=== PATIENT | male | born 1935 | race Caucasian/White ===

== ENCOUNTER 2020-02-06 22:09 | Inpatient (IN) | payer MEDICARE ==
[~2020-02-06] VITALS: Ht 177.8 cm; Wt 68.0 kg
[2020-02-06] MEDS ORDERED: metoprolol tartrate 1mg/ml inj IV ONE (22:30)
[2020-02-06] MEDS ORDERED: nitroGLYCERIN 0.4mg/hour patch TD ONE (22:30)
[2020-02-06] MEDS ORDERED: DILT240C51 PO (22:48)
[2020-02-06] MEDS ORDERED: METO-395 PO (22:49)
[2020-02-06] MEDS ORDERED: RIVA20TA PO (22:49)
[2020-02-06] MEDS ORDERED: CLOP75TA35 PO (22:50)
[2020-02-06] MEDS ORDERED: ISOS60TA4 PO (22:50)
[2020-02-06] MEDS ORDERED: LEVO125T8 PO (22:51)
[2020-02-06 22:52] LABS: BASOPHILS % (AUTO) 0.4 % (0-1); EOSINOPHILS # (AUTO) 0.2 X10'3 (0-0.9); EOSINOPHILS % (AUTO) 2.8 % (0-6); HEMATOCRIT 39.5 % (42.0-52.0); HEMOGLOBIN 13.1 g/dl (14.0-17.9); LYMPHOCYTES # (AUTO) 1.3 X10'3 (1.1-4.8); LYMPHOCYTES % (AUTO) 15.6 % (21-51); MEAN CORPUSCULAR HGB CONC 33.1 g/dL (33.0-36.5); MEAN CORPUSCULAR VOLUME 90.6 FL (78-98); MEAN PLATELET VOLUME 7.8 FL (7.4-10.4); MONOCYTES # (AUTO) 0.5 X10'3 (0-0.9); MONOCYTES % (AUTO) 6.7 % (2-12); NEUTROPHILS # (AUTO) 6.1 X10'3 (1.8-7.7); NEUTROPHILS % (AUTO) 74.5 % (42-75); PLATELET COUNT 195 X10'3 (140-440); RED BLOOD COUNT 4.35 X10'6 (4.70-6.10); RED CELL DISTRIBUTION WIDTH 15.3 % (11.5-14.5); WHITE BLOOD COUNT 8.1 X10'3 (4.5-11.0)
[2020-02-06] MEDS ORDERED: PANT20TA3 PO (22:52)
[2020-02-06 22:58] LABS: PARTIAL THROMBOPLASTIN TIME 33 SECONDS (22-32)
[2020-02-06 23:09] LABS: MAGNESIUM 2.2 MG/DL (1.5-2.4)
[2020-02-06] MEDS ORDERED: potassium CL 10mEq/100ml bag 100 ML IV PRN ×2 (23:20)
[2020-02-06] MEDS ORDERED: potassium Cl 20 mEq SR tablet PO PRN (23:20)
[2020-02-06] MEDS ORDERED: acetaminophen 325mg tablet PO PRN ×2 (23:20)
[2020-02-06] MEDS ORDERED: docusate sod 100mg capsule PO PRN (23:20)
[2020-02-06] MEDS ORDERED: HYDROcodone/acetaminophen 10/325mg tab PO PRN (23:20)
[2020-02-06] MEDS ORDERED: LIDOcaine 2% 10ml TOPICAL JELLY (Urojet) MM ONE (23:20)
[2020-02-06] MEDS ORDERED: ondansetron/PF 4mg/2ml inj IV PRN (23:20)
[2020-02-06] MEDS ORDERED: magnesium Cl slow-release 64mg tablet PO PRN (23:20)
[2020-02-06] MEDS ORDERED: mag hydrox/Alum hydrox/simeth 30ml oral suspension PO PRN (23:20)
[2020-02-06] MEDS ORDERED: magnesium 4gm in 100ml NS 100 ML IV PRN (23:20)
[2020-02-06] MEDS ORDERED: ipratropium/albuterol 3ml nebule NEB PRN (23:20)
[2020-02-06] MEDS ORDERED: magnesium 2GM in 50ml NS 50 ML IV PRN (23:20)
[2020-02-06 23:57] LABS: CLARITY,URINE SLIGHTLY CLOUDY (Clear); COLOR,URINE YELLOW (Yellow); GLUCOSE, URINE NEGATIVE (Neg); KETONES,URINE NEGATIVE (Neg); LEUKOCYTE ESTERASE ,URINE NEGATIVE (Neg); NITRITES, URINE NEGATIVE (Neg); OCCULT BLOOD,URINE MODERATE (Neg); PROTEIN,URINE 30 mg/dl (Neg)
[2020-02-06 23:58] LABS: UA COLLECTION TYPE URINAL
[2020-02-07] VITALS (15 sets, daily range): BP systolic 132–179; BP diastolic 76–114
[2020-02-07 00:10] LABS: ALANINE AMINOTRANSFERASE 17 U/L (12-78); ALBUMIN/GLOBULIN RATIO 0.9 (1.1-1.5); ALKALINE PHOSPHATASE 77 IU/L (46-116); ANION GAP 9 (8-16); ASPARTATE AMINO TRANSFERASE 27 U/L (10-37); BILIRUBIN,TOTAL 1.1 MG/DL (0.1-1.0); BLOOD UREA NITROGEN 26 MG/DL (7-18); BUN/CREATININE RATIO 20.3 (5.4-32.0); CALCIUM 8.5 MG/DL (8.5-10.1); CHLORIDE 107 MMOL/L (99-107); CREATININE 1.28 MG/DL (0.60-1.10); GLUCOSE 111 MG/DL (70-104); POTASSIUM 3.5 MMOL/L (3.5-5.1); SODIUM 142 MMOL/L (135-145); TOTAL CARBON DIOXIDE 26.5 MMOL/L (24-32); TOTAL PROTEIN 6.5 G/DL (6.4-8.2); eGFR 54 ML/MIN
--- NOTE | 2020-02-07 00:35 | NUR ---
I have received report from Inder, RN (ED) and had the opportunity to ask questions about the new pt. who will be admitted to 3012B.
[2020-02-07 00:50] LABS: RBC,URINE 0-2 /HPF (0-2); WBC,URINE 0-4 /HPF (0-4)
[2020-02-07 00:51] LABS: BACTERIA,URINE NONE SEEN /HPF (Neg); SQUAMOUS EPITHELIAL CELL,UR FEW /LPF (FEW)
--- NOTE | 2020-02-07 01:00 | NUR ---
Pt arrived to the unit via [place] and accompanied by an RN from ED. Pt belongings are with the pt. He walked from [facility] into the bedroom with steady gait. Activity was tolerated well, and he denied any SOB or chest pain. Tele monitor in place. MRSA swab and 2 - RN skin assessment were done.
[2020-02-07 02:21] LABS: ALANINE AMINOTRANSFERASE 18 U/L (12-78); ALBUMIN 3.4 G/DL (3.4-5.0); ALBUMIN/GLOBULIN RATIO 0.9 (1.1-1.5); ALKALINE PHOSPHATASE 84 IU/L (46-116); ANION GAP 8 (8-16); ASPARTATE AMINO TRANSFERASE 31 U/L (10-37); BILIRUBIN,TOTAL 1.3 MG/DL (0.1-1.0); BLOOD UREA NITROGEN 25 MG/DL (7-18); BUN/CREATININE RATIO 18.9 (5.4-32.0); CALCIUM 8.7 MG/DL (8.5-10.1); CHLORIDE 106 MMOL/L (99-107); CREATININE 1.32 MG/DL (0.60-1.10); GLUCOSE 112 MG/DL (70-104); POTASSIUM 3.4 MMOL/L (3.5-5.1); SODIUM 143 MMOL/L (135-145); TOTAL CARBON DIOXIDE 29.2 MMOL/L (24-32); TOTAL PROTEIN 7.3 G/DL (6.4-8.2); eGFR 52 ML/MIN
[2020-02-07 02:23] LABS: BASOPHILS % (AUTO) 0.5 % (0-1); CHOL/HDL RATIO 2.9 (0.00-4.99); CHOLESTEROL 126 MG/DL (0-200); EOSINOPHILS # (AUTO) 0.2 X10'3 (0-0.9); EOSINOPHILS % (AUTO) 2.8 % (0-6); HDL CHOLESTEROL 43 MG/DL (35-60); HEMATOCRIT 41.1 % (42.0-52.0); HEMOGLOBIN 13.4 g/dl (14.0-17.9); LDL CHOLESTEROL 79 MG/DL (50-100); LYMPHOCYTES # (AUTO) 1.3 X10'3 (1.1-4.8); LYMPHOCYTES % (AUTO) 16.9 % (21-51); MAGNESIUM 2.1 MG/DL (1.5-2.4); MEAN CORPUSCULAR HEMOGLOBIN 29.7 PG (27.0-31.0); MEAN CORPUSCULAR HGB CONC 32.6 g/dL (33.0-36.5); MEAN PLATELET VOLUME 7.7 FL (7.4-10.4); MONOCYTES # (AUTO) 0.6 X10'3 (0-0.9); MONOCYTES % (AUTO) 7.6 % (2-12); NEUTROPHILS # (AUTO) 5.7 X10'3 (1.8-7.7); NEUTROPHILS % (AUTO) 72.2 % (42-75); PLATELET COUNT 212 X10'3 (140-440); RED BLOOD COUNT 4.52 X10'6 (4.70-6.10); RED CELL DISTRIBUTION WIDTH 15.5 % (11.5-14.5); TRIGLYCERIDES 79 MG/DL (20-135); WHITE BLOOD COUNT 7.9 X10'3 (4.5-11.0)
[2020-02-07] MEDS ORDERED: hydrALAZINE 20mg/ml inj. IV ONE (03:10)
[2020-02-07] MEDS ORDERED: nitroGLYCERIN 0.4mg SUBLingual tab SL PRN (06:00)
[2020-02-07] MEDS ORDERED: regadenoson 0.4mg/5ml syringe IV ONE (06:00)
[2020-02-07] MEDS ORDERED: aminophylline 250mg/10ml inj. IV PRN (06:00)
[2020-02-07] MEDS ORDERED: metoprolol tartrate 1mg/ml inj IV PRN (06:00)
[2020-02-07] MEDS: potassium Cl 20 mEq SR tablet PO PRN ×3 (06:03→16:30)
--- NOTE | 2020-02-07 06:17 | NUR ---
Patient in room PCU 3012. I have received report from Martine CORTES and had the opportunity to ask questions and assume patient care.
--- NOTE | 2020-02-07 06:24 | NUR ---
Problems reprioritized. Patient report given, questions answered & plan of care reviewed with SOPHIA Butt.
--- NOTE | 2020-02-07 06:44 | NUR ---
Patient c/o not being able to urinate, sent Dr Vera a page PAGER ID: [phone] MESSAGE: Filomena CORTES [phone] [id number] pt c/o not being able to pee, states he has BPH, bladder scan showed 590ml, can i have an order for straight cath and then possibly get flomax on board? thanks Addendum: 02/07/20 at 0646 by Corina Doe RN Spoke with Dr Vera via telephone, received orders for straight cath with a urojet as well as for daily flomax, will continue to monitor the patient closely. Addendum: 02/07/20 at 0756 by Corina Doe RN Patient now resting comfortable, not c/o any pain, pain was a 10 when he could not urinate this morning, BP decreasing, AM medications given, Flomax given, metoprolol on hold for stress test this AM, states just wants to get some sleep as he has "been awake since 5AM yesterday", will continue to monitor closely.
[2020-02-07] MEDS ORDERED: LIDOcaine 2% 10ml TOPICAL JELLY (Urojet) MM ONE (06:50)
[2020-02-07] MEDS: clopidogrel 75mg tablet PO SCH (07:12)
[2020-02-07] MEDS: diltiazem CD 120mg capsule (once-daily) PO SCH (07:12)
[2020-02-07] MEDS: tamsulosin 0.4mg capsule PO SCH (07:12)
[2020-02-07] MEDS: isosorbide mononitrate 30mg tab.SR.24H PO SCH (07:12)
[2020-02-07] MEDS: pantoprazole 40mg Tablet.DR PO SCH (07:12)
[2020-02-07] MEDS: rivaroxaban 20mg tablet PO SCH (07:12)
[2020-02-07] MEDS: K and/or MAG REPLACEMENT MC SCH ×2 (07:18→20:29)
[2020-02-07] MEDS ORDERED: levoTHYROXINE 125mcg tablet PO SCH (08:00)
--- NOTE | 2020-02-07 09:17 | NUR ---
Sent a page to Dr Rodolfo vale PAGER ID: [phone] MESSAGE: Filomena CORTES [phone] [id number] pt c/o retention, pain and urgency, straight cathed this morning and got 800ml out, bladder scan shows 350ml now, do you want me to straight cath him again? or place george for retention? thanks Addendum: 02/07/20 at 926 by Corina Doe RN Dr Reynolds at bedside, received orders for George catheter placement, will continue to monitor the patient closely. Addendum: 02/07/20 at 956 by Corina Doe RN MD Reynolds aware of hematuria, will continue to monitor closely.
[2020-02-07] MEDS ORDERED: LIDOcaine 2% 10ml TOPICAL JELLY (Urojet) TP ONE (09:30)
--- NOTE | 2020-02-07 10:30 | NUR ---
Patient left the unit to go down to nuclear medicine for stress test.
[2020-02-07] MEDS: metoprolol succinate 25mg (24-HOUR) SR. Tablet PO SCH (12:12)
--- NOTE | 2020-02-07 12:18 | NUR ---
Sent a page to Dr Rodolfo vale PAGER ID: [phone] MESSAGE: Filomena CORTES [phone], anjana Cooleyi scan results are back, can I go ahead and order a diet for this patient? thanks Addendum: 02/07/20 at 1220 by Corina Doe RN Spoke w Dr Reynolds via telephone, heart healthy diet ordered
--- NOTE | 2020-02-07 12:34 | NUR ---
Malnutrition Consult: Pt has normal strength, no edema, skin intact, appears well-developed/well-nourished per MD note. No scaled wt hx pending scaled wt this admit. Initially NPO for stress test advanced to heart healthy diet pending PO this admit. Pt does not meet minimum malnutrition criteria at this time. Will continue to monitor. Addendum: 02/07/20 at [address] Amended: Links added.
[2020-02-07] MEDS ORDERED: furosemide 40mg/4ml inj IV ONE (13:05)
--- NOTE | 2020-02-07 13:35 | NUR ---
Spoke to patients , Sade, at [phone] and updated her on the patients plan of care. Sade is aware that the patient was having urinary retention this morning and now has a North catheter in place. Sade was asking if discharge was going to happen today, educated that discharge wont happen today due to the retention and the need to complete all ordered tests. Will continue to monitor the patient closely and call Sade with any updates.
--- NOTE | 2020-02-07 13:50 | NUR ---
Spoke to Dr Weinberg, and stated that he is cleared to be discharged from a cardiology standpoint. Will continue to monitor the patient closely.
--- NOTE | 2020-02-07 18:04 | NUR ---
Problems reprioritized. Patient report given, questions answered & plan of care reviewed with Rylie CORTES.
--- NOTE | 2020-02-07 18:13 | NUR ---
Patient in room PCU 3012. I have received report from Filomena CORTES and had the opportunity to ask questions and assume patient care.
[2020-02-08 03:00] VITALS: BP 159/89
[2020-02-08 05:19] LABS: BASOPHILS % (AUTO) 0.2 % (0-1); EOSINOPHILS # (AUTO) 0.1 X10'3 (0-0.9); EOSINOPHILS % (AUTO) 1.1 % (0-6); HEMATOCRIT 35.3 % (42.0-52.0); HEMOGLOBIN 11.6 g/dl (14.0-17.9); LYMPHOCYTES # (AUTO) 0.7 X10'3 (1.1-4.8); LYMPHOCYTES % (AUTO) 7.7 % (21-51); MEAN CORPUSCULAR HGB CONC 32.8 g/dL (33.0-36.5); MEAN CORPUSCULAR VOLUME 91.3 FL (78-98); MEAN PLATELET VOLUME 7.8 FL (7.4-10.4); MONOCYTES # (AUTO) 0.6 X10'3 (0-0.9); MONOCYTES % (AUTO) 6.8 % (2-12); NEUTROPHILS # (AUTO) 7.5 X10'3 (1.8-7.7); NEUTROPHILS % (AUTO) 84.2 % (42-75); PLATELET COUNT 197 X10'3 (140-440); RED BLOOD COUNT 3.86 X10'6 (4.70-6.10); RED CELL DISTRIBUTION WIDTH 15.4 % (11.5-14.5); WHITE BLOOD COUNT 8.9 X10'3 (4.5-11.0)
[2020-02-08 05:36] LABS: ALANINE AMINOTRANSFERASE 14 U/L (12-78); ALBUMIN 3.2 G/DL (3.4-5.0); ALBUMIN/GLOBULIN RATIO 0.9 (1.1-1.5); ALKALINE PHOSPHATASE 64 IU/L (46-116); ANION GAP 10 (8-16); ASPARTATE AMINO TRANSFERASE 32 U/L (10-37); BILIRUBIN,TOTAL 1.8 MG/DL (0.1-1.0); BLOOD UREA NITROGEN 21 MG/DL (7-18); BUN/CREATININE RATIO 17.2 (5.4-32.0); CALCIUM 8.5 MG/DL (8.5-10.1); CHLORIDE 108 MMOL/L (99-107); CREATININE 1.22 MG/DL (0.60-1.10); GLUCOSE 110 MG/DL (70-104); MAGNESIUM 1.9 MG/DL (1.5-2.4); POTASSIUM 3.3 MMOL/L (3.5-5.1); SODIUM 145 MMOL/L (135-145); TOTAL CARBON DIOXIDE 27.3 MMOL/L (24-32); TOTAL PROTEIN 6.6 G/DL (6.4-8.2); eGFR 57 ML/MIN
[2020-02-08 06:00] VITALS: BP 178/103
--- NOTE | 2020-02-08 06:18 | NUR ---
Patient in room PCU 3012. I have received report from Rylie CORTES and had the opportunity to ask questions and assume patient care.
--- NOTE | 2020-02-08 06:29 | NUR ---
Problems reprioritized. Patient report given, questions answered & plan of care reviewed with Filomena CORTES.
[2020-02-08] MEDS: diltiazem CD 120mg capsule (once-daily) PO SCH (07:02)
[2020-02-08] MEDS: isosorbide mononitrate 30mg tab.SR.24H PO SCH (07:02)
[2020-02-08] MEDS: levoTHYROXINE 125mcg tablet PO SCH (07:03)
[2020-02-08] MEDS: furosemide 40mg/4ml inj IV SCH (07:03)
[2020-02-08] MEDS: pantoprazole 40mg Tablet.DR PO SCH (07:03)
[2020-02-08] MEDS: metoprolol succinate 25mg (24-HOUR) SR. Tablet PO SCH (07:03)
[2020-02-08] MEDS: rivaroxaban 20mg tablet PO SCH (07:03)
[2020-02-08] MEDS: clopidogrel 75mg tablet PO SCH (07:03)
[2020-02-08] MEDS: tamsulosin 0.4mg capsule PO SCH (07:03)
[2020-02-08] MEDS: potassium Cl 20 mEq SR tablet PO PRN ×3 (07:03→17:01)
[2020-02-08] MEDS: K and/or MAG REPLACEMENT MC SCH ×2 (07:12→20:00)
[2020-02-08 09:10] VITALS: BP 136/84
--- NOTE | 2020-02-08 10:02 | NUR ---
Spoke with Dr Reynolds, received orders to irrigate North catheter and hold all blood thinners, will continue to monitor closely.
--- NOTE | 2020-02-08 10:33 | NUR ---
Spoke with patients via telephone and updated her on the patients current plan of care.
[2020-02-08 11:00] VITALS: BP 127/90
--- NOTE | 2020-02-08 11:12 | NUR ---
Sent a page to Dr Rodolfo vale PAGER ID: [phone] MESSAGE: Filomena CORTES [phone] [id number], irrigated bladder until clear but urine is bright hirsch again, still leaking from around the urethra, do you want me to replace this North? please advise, thanks
--- NOTE | 2020-02-08 11:52 | NUR ---
Sent another page to Dr Reynolds PAGER ID: [phone] MESSAGE: Filomena CORTES [phone], [address] [place], george catheter irrigates but the water is now leaking from around the catheter, do you want me to insert a coude or new catheter? please advise, thanks
--- NOTE | 2020-02-08 13:41 | NUR ---
Patient passing urine from around North catheter, irrigating North per MD order but irrigation flush leaking out around catheter, patient passed a 2.5 inch blood clot around the catheter and onto the bed, discontinued North catheter placed yesterday and placed new Coude 16 khmer catheter, will continue to monitor the patient closely.
[2020-02-08] MEDS ORDERED: iohexol 300mg/ml 100ml inj. ONE (14:55)
[2020-02-08 15:00] VITALS: BP 117/76
[2020-02-08] MEDS: HYDROcodone/acetaminophen 5mg/325mg tablet PO PRN (16:51)
--- NOTE | 2020-02-08 16:57 | NUR ---
RN at bedside with MD Bright MD replaced North catheter and irrigated bladder, received new orders for CBI, will continue to monitor the patient closely.
[2020-02-08 18:00] VITALS: BP 158/95
--- NOTE | 2020-02-08 18:25 | NUR ---
Problems reprioritized. Patient report given, questions answered & plan of care reviewed with Rylie CORTES.
--- NOTE | 2020-02-08 18:29 | NUR ---
Patient in room PCU 3012. I have received report from Filomena CORTES and had the opportunity to ask questions and assume patient care.
[2020-02-09 02:58] VITALS: BP 148/78
[2020-02-09 06:06] LABS: BASOPHILS % (AUTO) 0.3 % (0-1); EOSINOPHILS # (AUTO) 0.2 X10'3 (0-0.9); EOSINOPHILS % (AUTO) 2.2 % (0-6); HEMOGLOBIN 11.6 g/dl (14.0-17.9); LYMPHOCYTES % (AUTO) 10.8 % (21-51); MEAN CORPUSCULAR HEMOGLOBIN 30.2 PG (27.0-31.0); MEAN CORPUSCULAR HGB CONC 33.1 g/dL (33.0-36.5); MEAN CORPUSCULAR VOLUME 91.1 FL (78-98); MEAN PLATELET VOLUME 7.8 FL (7.4-10.4); MONOCYTES # (AUTO) 0.7 X10'3 (0-0.9); MONOCYTES % (AUTO) 7.4 % (2-12); NEUTROPHILS # (AUTO) 7.6 X10'3 (1.8-7.7); NEUTROPHILS % (AUTO) 79.3 % (42-75); PLATELET COUNT 194 X10'3 (140-440); RED BLOOD COUNT 3.85 X10'6 (4.70-6.10); RED CELL DISTRIBUTION WIDTH 15.3 % (11.5-14.5); WHITE BLOOD COUNT 9.6 X10'3 (4.5-11.0)
[2020-02-09 06:11] LABS: ALANINE AMINOTRANSFERASE 13 U/L (12-78); ALBUMIN 3.3 G/DL (3.4-5.0); ALKALINE PHOSPHATASE 68 IU/L (46-116); ANION GAP 10 (8-16); ASPARTATE AMINO TRANSFERASE 27 U/L (10-37); BILIRUBIN,TOTAL 1.7 MG/DL (0.1-1.0); BLOOD UREA NITROGEN 17 MG/DL (7-18); BUN/CREATININE RATIO 14.8 (5.4-32.0); CALCIUM 8.7 MG/DL (8.5-10.1); CHLORIDE 106 MMOL/L (99-107); CREATININE 1.15 MG/DL (0.60-1.10); GLUCOSE 113 MG/DL (70-104); MAGNESIUM 1.9 MG/DL (1.5-2.4); POTASSIUM 3.3 MMOL/L (3.5-5.1); SODIUM 142 MMOL/L (135-145); TOTAL PROTEIN 6.7 G/DL (6.4-8.2); eGFR 61 ML/MIN
--- NOTE | 2020-02-09 06:28 | NUR ---
Patient in room PCU 3012. I have received report from SOPHIA Youngblood and had the opportunity to ask questions and assume patient care. Pt resting comfortably during bedside report.
--- NOTE | 2020-02-09 06:35 | NUR ---
Problems reprioritized. Patient report given, questions answered & plan of care reviewed with Maria De Jesus CORTES.
[2020-02-09 07:00] VITALS: BP 164/110
[2020-02-09] MEDS: pantoprazole 40mg Tablet.DR PO SCH (07:38)
[2020-02-09] MEDS: furosemide 40mg/4ml inj IV SCH (07:38)
[2020-02-09] MEDS: metoprolol succinate 25mg (24-HOUR) SR. Tablet PO SCH (07:38)
[2020-02-09] MEDS: isosorbide mononitrate 30mg tab.SR.24H PO SCH (07:38)
[2020-02-09] MEDS: diltiazem CD 120mg capsule (once-daily) PO SCH (07:38)
[2020-02-09] MEDS: tamsulosin 0.4mg capsule PO SCH (07:38)
[2020-02-09] MEDS: levoTHYROXINE 125mcg tablet PO SCH (07:38)
[2020-02-09] MEDS: K and/or MAG REPLACEMENT MC SCH ×2 (08:00→19:28)
[2020-02-09] MEDS: clopidogrel 75mg tablet PO SCH (08:00)
[2020-02-09 11:00] VITALS: BP 125/82
[2020-02-09] MEDS: potassium Cl 20 mEq SR tablet PO PRN ×2 (12:35→17:44)
[2020-02-09 15:00] VITALS: BP 119/85
[2020-02-09 18:00] VITALS: BP 109/70
--- NOTE | 2020-02-09 18:00 | NUR ---
Patient in room PCU 3012. I have received report from Maria De Jesus CORTES and had the opportunity to ask questions and assume patient care.
--- NOTE | 2020-02-09 18:23 | NUR ---
Problems reprioritized. Patient report given, questions answered & plan of care reviewed with SOPHIA Dejesus. All pt needs met at this time.
[2020-02-09] MEDS: opium/belladonna alkaloids No. 15A 30mg rectal suppository RC PRN (19:10)
[2020-02-09 21:55] VITALS: BP 139/84
[2020-02-10] MEDS: HYDROcodone/acetaminophen 5mg/325mg tablet PO PRN (01:45)
[2020-02-10 04:22] VITALS: BP 145/72
[2020-02-10 05:11] LABS: BASOPHILS % (AUTO) 0.4 % (0-1); EOSINOPHILS # (AUTO) 0.3 X10'3 (0-0.9); EOSINOPHILS % (AUTO) 3.3 % (0-6); HEMATOCRIT 34.4 % (42.0-52.0); HEMOGLOBIN 11.2 g/dl (14.0-17.9); LYMPHOCYTES % (AUTO) 9.8 % (21-51); MEAN CORPUSCULAR HGB CONC 32.6 g/dL (33.0-36.5); MEAN PLATELET VOLUME 7.8 FL (7.4-10.4); MONOCYTES # (AUTO) 0.8 X10'3 (0-0.9); NEUTROPHILS # (AUTO) 7.6 X10'3 (1.8-7.7); NEUTROPHILS % (AUTO) 78.5 % (42-75); PLATELET COUNT 204 X10'3 (140-440); RED BLOOD COUNT 3.74 X10'6 (4.70-6.10); RED CELL DISTRIBUTION WIDTH 16.1 % (11.5-14.5); WHITE BLOOD COUNT 9.7 X10'3 (4.5-11.0)
[2020-02-10 05:20] LABS: ALANINE AMINOTRANSFERASE 14 U/L (12-78); ALBUMIN 3.1 G/DL (3.4-5.0); ALBUMIN/GLOBULIN RATIO 0.9 (1.1-1.5); ALKALINE PHOSPHATASE 62 IU/L (46-116); ANION GAP 8 (8-16); ASPARTATE AMINO TRANSFERASE 20 U/L (10-37); BILIRUBIN,TOTAL 1.4 MG/DL (0.1-1.0); BLOOD UREA NITROGEN 19 MG/DL (7-18); BUN/CREATININE RATIO 16.4 (5.4-32.0); CALCIUM 8.5 MG/DL (8.5-10.1); CHLORIDE 107 MMOL/L (99-107); CREATININE 1.16 MG/DL (0.60-1.10); GLUCOSE 110 MG/DL (70-104); MAGNESIUM 1.9 MG/DL (1.5-2.4); POTASSIUM 3.7 MMOL/L (3.5-5.1); SODIUM 144 MMOL/L (135-145); TOTAL CARBON DIOXIDE 28.8 MMOL/L (24-32); TOTAL PROTEIN 6.5 G/DL (6.4-8.2); eGFR 60 ML/MIN
--- NOTE | 2020-02-10 05:38 | NUR ---
CBI At the beginning of the shift the Patient was flushed for the presence of clots, continued irrigation at a slow drip. The george was clamped at 2110, the urine was robert and hanna; unclamped and flushed at 2330 for the presence of clots. George was clamped again at 0040 to make sure there were no further clots as the urine looked clear and hanna, unclamped at 0135 and the urine was clear hanna and no presence of clots; irrigation continued at slow rate per order. At 0530, the urine has maintained clear and hanna with no signs of clots, patient has no signs of pain and discomfort. Will pass on to day shift, possible discontinuation this AM.
--- NOTE | 2020-02-10 06:06 | NUR ---
Patient in room PCU 3012. I have received report from SOPHIA Dejesus and had the opportunity to ask questions and assume patient care. Pt resting comfortably at bedside report, no signs of discomfort noted.
--- NOTE | 2020-02-10 06:07 | NUR ---
Problems reprioritized. Patient report given, questions answered & plan of care reviewed with Maria De Jesus CORTES.
[2020-02-10 07:00] VITALS: BP 140/82
[2020-02-10] MEDS: levoTHYROXINE 125mcg tablet PO SCH (07:46)
[2020-02-10] MEDS: pantoprazole 40mg Tablet.DR PO SCH (07:47)
[2020-02-10] MEDS: isosorbide mononitrate 30mg tab.SR.24H PO SCH (07:47)
[2020-02-10] MEDS: tamsulosin 0.4mg capsule PO SCH (07:47)
[2020-02-10] MEDS: diltiazem CD 120mg capsule (once-daily) PO SCH (07:47)
[2020-02-10] MEDS: metoprolol succinate 25mg (24-HOUR) SR. Tablet PO SCH (07:47)
[2020-02-10] MEDS: opium/belladonna alkaloids No. 15A 30mg rectal suppository RC PRN (07:47)
[2020-02-10] MEDS: furosemide 40mg/4ml inj IV SCH (07:47)
[2020-02-10] MEDS: clopidogrel 75mg tablet PO SCH (08:00)
[2020-02-10] MEDS: K and/or MAG REPLACEMENT MC SCH (08:00)
[2020-02-10] MEDS ORDERED: IPRA3AMP9 NEB (10:24)
[2020-02-10] MEDS ORDERED: tamsulosin capsule PO (10:24)
[2020-02-10 11:00] VITALS: BP 121/83
[2020-02-10] MEDS ORDERED: ISOS30TA9 PO (11:38)
--- NOTE | 2020-02-10 14:25 | NUR ---
Pt stable for discharge per MD orders. All instructions were given, questions answered appropriately. All belongings were collected and sent with pt. Two PIV's discontinued, cannula intact. Tele discontinued, supervisor telephone answering service notified. Disconnected CBI bags and tubing, replaced with a catheter leg bag. Showed pt how to properly secure bag to leg and how to drain bag when half full of urine. Informed patient and to make follow up appts with PCP, Cardiology and the urologist Dr Novoa within one week. Informed that new medications were called into the [facility] in [place].
== END 2020-02-10 14:25 | disposition home health service (06) | DRG 291 ==
LOC: ER 22:12 → ED HOLD 23:16 → PCU 3S 02-07 01:07
PROVIDERS: ADMIT Family Medicine; ATTEND Internal Medicine
PROC: 4A02XM4 Measurement of Cardiac Total Activity, External Approach (ICD-10-PCS; principal; 2020-02-07)
PROC: 3E033HZ Introduction of Radioactive Substance into Peripheral Vein, Percutaneous Approach (ICD-10-PCS; 2020-02-07)
PROC: 0T9B70Z Drainage of Bladder with Drainage Device, Via Natural or Artificial Opening (ICD-10-PCS; 2020-02-07)
DX: I13.0 Hypertensive heart and chronic kidney disease with heart failure and stage 1 through stage 4 chronic kidney disease, or unspecified chronic kidney disease (principal); I50.23 Acute on chronic systolic (congestive) heart failure; N39.0 Urinary tract infection, site not specified; N13.8 Other obstructive and reflux uropathy; I35.0 Nonrheumatic aortic (valve) stenosis; R31.0 Gross hematuria; Z79.899 Other long term (current) drug therapy; Z86.73 Personal history of transient ischemic attack (TIA), and cerebral infarction without residual deficits; K21.9 Gastro-esophageal reflux disease without esophagitis; Z95.1 Presence of aortocoronary bypass graft; Z95.0 Presence of cardiac pacemaker; N40.1 Benign prostatic hyperplasia with lower urinary tract symptoms; Z79.01 Long term (current) use of anticoagulants; E78.00 Pure hypercholesterolemia, unspecified; I25.10 Atherosclerotic heart disease of native coronary artery without angina pectoris; N18.3 Chronic kidney disease, stage 3 (moderate); I48.0 Paroxysmal atrial fibrillation; E87.6 Hypokalemia; R33.9 Retention of urine, unspecified; J44.9 Chronic obstructive pulmonary disease, unspecified; E03.9 Hypothyroidism, unspecified
CPT/HCPCS: 36415; 74177; 78452; 80053; 80061; 81001; 83735; 83880; 84443; 84484; 85025; 85610; 85730; 87081; 93005; 93017; 93306; 94760; 97161; 97530; 99285; A9500; G0378; J0360; J1940; J2785; J3490; Q9967

== ENCOUNTER 2023-01-23 09:52 | Day surgery (SDC) | payer MEDICARE ==
[2023-01-22 14:32] LABS: BASOPHILS % (AUTO) 0.4 % (0-1); EOSINOPHILS # (AUTO) 0.1 X10'3 (0-0.9); EOSINOPHILS % (AUTO) 1.4 % (0-6); HEMATOCRIT 36.7 % (42.0-52.0); HEMOGLOBIN 12.2 g/dl (14.0-17.9); LYMPHOCYTES # (AUTO) 0.6 X10'3 (1.1-4.8); LYMPHOCYTES % (AUTO) 8.9 % (21-51); MEAN CORPUSCULAR HEMOGLOBIN 29.8 PG (27.0-31.0); MEAN CORPUSCULAR HGB CONC 33.1 g/dL (33.0-36.5); MEAN CORPUSCULAR VOLUME 89.9 FL (78-98); MEAN PLATELET VOLUME 7.5 FL (7.4-10.4); MONOCYTES # (AUTO) 0.5 X10'3 (0-0.9); MONOCYTES % (AUTO) 7.5 % (2-12); NEUTROPHILS # (AUTO) 5.2 X10'3 (1.8-7.7); NEUTROPHILS % (AUTO) 81.8 % (42-75); PLATELET COUNT 131 X10'3 (140-440); RED BLOOD COUNT 4.09 X10'6 (4.70-6.10); RED CELL DISTRIBUTION WIDTH 16.5 % (11.5-14.5); WHITE BLOOD COUNT 6.4 X10'3 (4.5-11.0)
[2023-01-22 14:40] LABS: ALBUMIN 3.1 G/DL (3.4-5.0); ANION GAP 8 (8-16); BLOOD UREA NITROGEN 27 MG/DL (7-18); BUN/CREATININE RATIO 22.9 (10.0-20.0); CALCIUM 8.8 MG/DL (8.5-10.1); CHLORIDE 106 MMOL/L (99-107); CREATININE 1.18 MG/DL (0.60-1.10); GLUCOSE 102 MG/DL (70-104); POTASSIUM 4.1 MMOL/L (3.5-5.1); SODIUM 142 MMOL/L (135-145); TOTAL CARBON DIOXIDE 27.8 MMOL/L (24-32); eGFR 59 ML/MIN
[2023-01-22 14:43] LABS: APTT 30 SECONDS (22-32)
[~2023-01-23] VITALS: Ht 182.9 cm; Wt 67.0 kg
[2023-01-23] VITALS (13 sets, daily range): BP systolic 158–175; BP diastolic 84–98; PULSE 70–80; RESP 16–26; TEMP 97.4; O2SAT 93–98
[~2023-01-23 09:52] MED LIST: CLOP75TA34 PO; DILT240C51 PO; IPRA3AMP9 NEB; ISOS60TA71 PO; LEVO125T8 PO; METO-395 PO; PANT20TA18 PO; RIVA20TA PO; tamsulosin capsule PO
[2023-01-23] MEDS ORDERED: normal saline 1,000 ML IV SCH (10:10)
[2023-01-23] MEDS ORDERED: LORazepam 0.5 MG tablet PO PRN (10:10)
[2023-01-23] MEDS ORDERED: diphenhydrAMINE 25mg capsule PO PRN (10:10)
[2023-01-23] MEDS ORDERED: sodium bicarbonate (8.4%) inj. 150 MEQ in dextrose 5%-water 1,000 ML IV SCH (10:15)
[2023-01-23] MEDS ORDERED: RIVA15TA PO (10:36)
[2023-01-23] MEDS ORDERED: LOSA50TA64 PO (10:36)
[2023-01-23] MEDS ORDERED: FINA5TAB11 PO (10:36)
[2023-01-23] MEDS ORDERED: TRAZ150T78 PO (10:36)
[2023-01-23] MEDS ORDERED: FURO40TA4 PO (10:37)
[2023-01-23] MEDS ORDERED: POTA-208 PO (10:37)
[2023-01-23] MEDS ORDERED: BUDE10.2 PO (10:42)
[2023-01-23] MEDS ORDERED: METO-411 PO (10:42)
[2023-01-23] MEDS ORDERED: ALBU90AE2 (10:42)
[2023-01-23] MEDS ORDERED: FLO0.4C PO (10:42)
[2023-01-23] MEDS ORDERED: DOCU100C40 PO (10:42)
[2023-01-23] MEDS ORDERED: CLON0.1T2 PO (10:42)
[2023-01-23] MEDS ORDERED: PANT-47 PO (10:45)
[2023-01-23] MEDS ORDERED: VIT1CAPS46 PO (10:45)
[2023-01-23] MEDS ORDERED: MV-M1CAP24 (10:45)
[2023-01-23] MEDS ORDERED: ROSU10TA28 PO (10:46)
[2023-01-23] MEDS: acetylcysteine 200 MG/ml 4ml vial PO PRN ×2 (10:53→20:41)
--- NOTE | 2023-01-23 11:05 | NUR ---
O2 Sat at rest on room air:86___% If below 89%: Recovery O2 Sat at rest on _2__LPM:__95_%:___% via NC (mask/nasal cannula, etc..) No further documentation is necessary. If O2 Sat did not drop below 89% on room air,ambulate patient on room air. O2 Sat while ambulating on room air:___% Recovery O2 Sat while ambulating on ___LPM:___% No further documentation is necessary. If patient does not drop below 89% while ambulating, he/she does not qualify for home O2.
[2023-01-23] MEDS ORDERED: nitroGLYCERIN-Tridil 50MG/D5W 250 ML IV ONE (13:03)
[2023-01-23] MEDS ORDERED: verapamil 2.5 mg/ml inj IV ONE (13:03)
[2023-01-23] MEDS ORDERED: iohexol 350MG/ML 100ml bottle IV ONE (13:04)
[2023-01-23] MEDS ORDERED: iohexol 350 MG/ML 50ML vial IV ONE ×2 (13:04→15:00)
[2023-01-23] MEDS ORDERED: midazolam 1 mg/ML 2ml injection ONE (13:04)
[2023-01-23] MEDS ORDERED: fentaNYL/PF 50MCG/1 ML 2ML syringe ONE ×2 (13:04→15:19)
[2023-01-23] MEDS ORDERED: LIDOcaine 1% 30ml preserv. free vial ONE (13:04)
[2023-01-23] MEDS ORDERED: heparin 1,000unit/ml 10ml vial 10 ML ONE (13:04)
[2023-01-23] MEDS ORDERED: heparin 1,000 UNITS/NS 500ml 500 ML ONE (14:28)
[2023-01-23] MEDS ORDERED: diltiazem 5mg/ml 5ml inj. IV ONE (14:55)
[2023-01-23 15:05] LABS: ISTAT HGB ART 12.6 g/dl (14.0-17.9); ISTAT Hct ART 37 %PCV (42-52); ISTAT O2 SATURATION ARTERIAL 99 % (95-98); ISTAT SOURCE ART
[2023-01-23] MEDS ORDERED: normal saline 1000ml 1,000 ML IV SCH (16:30)
[2023-01-23] MEDS: hydrALAZINE 20mg/ml inj. IV PRN ×2 (16:40→20:39)
[2023-01-23] MEDS ORDERED: potassium Cl 20 mEq SR tablet PO STA (17:23)
[2023-01-23] MEDS ORDERED: furosemide 20 MG/2 ML vial IV ONE ×2 (17:25→18:30)
[2023-01-23] MEDS ORDERED: docusate sod 100mg capsule PO PRN (19:25)
[2023-01-23] MEDS ORDERED: diltiazem CD 120mg capsule (once-daily) PO SCH ×3 (19:28→19:43)
[2023-01-23] MEDS ORDERED: tamsulosin 0.4mg capsule PO SCH (20:00)
[2023-01-23] MEDS ORDERED: losartan 50mg tablet PO SCH (20:00)
[2023-01-23] MEDS ORDERED: potassium Cl 20 mEq SR tablet PO SCH (20:00)
[2023-01-23] MEDS ORDERED: cloNIDine 0.1 mg tablet PO SCH (20:00)
[2023-01-23] MEDS ORDERED: traZODone 150mg tablet PO SCH (21:00)
[2023-01-23] MEDS ORDERED: albuterol 2.5 MG/3 ML nebule NEB SCH (21:00)
[2023-01-23] MEDS ORDERED: budesonide 0.5mg/2ml UD nebule IH SCH (21:00)
[2023-01-24] MEDS ORDERED: levoTHYROXINE 125mcg tablet PO SCH (07:00)
[2023-01-24] MEDS ORDERED: pantoprazole 40mg Tablet.DR PO SCH (07:30)
[2023-01-24] MEDS ORDERED: finasteride 5mg tablet PO SCH (08:00)
[2023-01-24] MEDS ORDERED: isosorbide mononitrate 30mg tab.SR.24H PO SCH (08:00)
[2023-01-24] MEDS ORDERED: furosemide 40mg tablet PO SCH (08:00)
[2023-01-24] MEDS ORDERED: ROSUVASTATIN CALCIUM 5 MG TABLET PO SCH (08:00)
[2023-01-24] MEDS ORDERED: rivaroxaban 15mg tablet PO SCH (18:00)
[2023-01-28 07:45] LABS: ISTAT Hct MIX 37 %PCV (42-52); ISTAT O2 SATURATION MIX VENOUS 56 % (60-80); ISTAT SOURCE VEN
== END 2023-01-23 21:45 | disposition home or self-care (01) ==
LOC: SSTAY O 09:52
PROVIDERS: ATTEND Internal Medicine Cardiovascular Disease
DX: I25.719 Atherosclerosis of autologous vein coronary artery bypass graft(s) with unspecified angina pectoris (principal); I48.20 Chronic atrial fibrillation, unspecified; E78.5 Hyperlipidemia, unspecified; I11.0 Hypertensive heart disease with heart failure; I50.9 Heart failure, unspecified; I49.5 Sick sinus syndrome; N40.0 Benign prostatic hyperplasia without lower urinary tract symptoms; K21.9 Gastro-esophageal reflux disease without esophagitis; M54.16 Radiculopathy, lumbar region; J44.9 Chronic obstructive pulmonary disease, unspecified; E03.9 Hypothyroidism, unspecified; I35.1 Nonrheumatic aortic (valve) insufficiency; Z95.0 Presence of cardiac pacemaker; Z95.5 Presence of coronary angioplasty implant and graft; Z95.1 Presence of aortocoronary bypass graft; Z95.4 Presence of other heart-valve replacement; Z98.890 Other specified postprocedural states; Z72.89 Other problems related to lifestyle; Z88.8 Allergy status to other drugs, medicaments and biological substances; Z82.49 Family history of ischemic heart disease and other diseases of the circulatory system
CPT/HCPCS: 36415; 76937; 80048; 82803; 85014; 85025; 85610; 85730; 93005; 93461; 93567; 94640; J0360; J1644; J1940; J2250; J3010; J3490; J7030; J7070; Q0163; Q9967; 94760; A4615; A4620; A6258; C1725; C1751; C1760; C1769; C1894